=== PATIENT | female | born 1945 | race Caucasian/White ===

== ENCOUNTER 2018-09-12 12:57 | Emergency (ER) | payer MEDICARE, OTHER ==
[~2018-09-12] VITALS: Ht 170.2 cm; Wt 102.1 kg
[~2018-09-12 12:57] MED LIST: ALLOPURINOL100 MG PO; CALCIUM + VITA1 EACH PO; CIPROFLOXACIN500 MG PO; CYCLOBENZAPRINE10 MG PO; FLONASE2 SPRAY; GABAPENTIN600 MG PO; HYDROMORPHONE HC2 MG PO; K-PHOS NEUTRAL T1 EA PO; LISINOPRIL10 MG PO; MAG-OXIDE400 MG PO; OMEPRAZOLE20 MG PO; OXYBUTYNIN CHLOR5 MG PO; OXYCODONE HCL5 MG PO; SPIRONOLACTONE50 MG PO; TRAMADOL HCL50 MG PO; VITAMIN D2000 UNI1 PO; [UNRECOGNIZED DRUG - OTHER] OU
--- OUTSIDE RECORDS SUMMARY | 2018-09-12 13:00 | XMS ---
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 E.D. VISIT COUNT (12 MO.) 1 ALFONSO Dumont TOTAL 1 NOTE: Visits indicate total known visits. ED/UCC VISIT TRACKING (12 MO.) 09/12/2018 12:57 AL[facility]ON[facility] Ryan [place] TYPE: Emergency COMPLAINT: - R HAND LAC INPATIENT VISIT TRACKING (12 MO.) No inpatient visits to display in this time frame [email or web address]
[2018-09-12] MEDS ORDERED: LISINOPRIL-HCT1 EAC2 PO (13:42)
== END 2018-09-12 13:46 | disposition home or self-care (01) ==
LOC: ED 12:57
DX: S61.412A Laceration without foreign body of left hand, initial encounter (principal); W26.0XXA Contact with knife, initial encounter; E11.9 Type 2 diabetes mellitus without complications; Z87.891 Personal history of nicotine dependence; Z88.0 Allergy status to penicillin; Z88.2 Allergy status to sulfonamides; Z88.5 Allergy status to narcotic agent; Z88.8 Allergy status to other drugs, medicaments and biological substances; Z79.899 Other long term (current) drug therapy; Z79.891 Long term (current) use of opiate analgesic
CPT/HCPCS: 99282

== ENCOUNTER → 2019-09-23 | Emergency (ER) | payer MEDICARE ==
[~2019-09-23] VITALS: Ht 170.2 cm; Wt 102.1 kg
[~2019-09-23] MED LIST changes: +FENOFIBRATE160 MG PO; +LISINOPRIL-HCT1 EAC2 PO
--- OUTSIDE RECORDS SUMMARY | 2019-09-23 16:58 | XMS ---
PreManage Notification: OSMIN LOGAN Security Spiritual Advisor Events No recent Security Events currently on file CRITERIA MET - COSME CARE PROVIDERS ELISSA BAKER Physician Facility Supervisor 09/13/2018-Current PHONE: [phone] Elissa Baker PA-C Treatment Current PHONE: Unknown shaun Case or Skin Toggler Current PHONE: Unknown Ashley FLANNERY Current PHONE: Unknown Guerda has no Care Guidelines for this patient. Aniya VISIT COUNT (12 MO.) 1 ALFONSO Dumont TOTAL 1 NOTE: Visits indicate total known visits. ED/UCC VISIT TRACKING (12 MO.) 09/23/2019 16:56 ALFONSO Ryan [place] TYPE: Emergency COMPLAINT: - LEFT LEG SWELLING, SWALLOWING PROBLEM INPATIENT VISIT TRACKING (12 MO.) No inpatient visits to display in this time frame [id number]
--- NOTE | 2019-09-23 19:15 | EKG ---
[facility] [address] [place], [place] [address] Signed Normal sinus rhythm Right bundle branch block Abnormal ECG No previous ECGs available Confirmed by GUANACO LANCASTER MD ([id number] on 09/23/2019 7:15:32 PM Electronically Signed By: GUANACO LANCASTER MD 09/23/19 1915 PATIENT NAME: OSMIN LOGAN Electrocardiogram DATE OF : 45 PHYSICIAN: GUANACO LANCASTER MD REPORT #: [id number] REPORT IS CONFIDENTIAL AND NOT TO BE RELEASED WITHOUT AUTHORIZATION
== END ==
LOC: ED 16:55
DX: N17.9 Acute kidney failure, unspecified (principal); N39.0 Urinary tract infection, site not specified; I82.402 Acute embolism and thrombosis of unspecified deep veins of left lower extremity; E11.9 Type 2 diabetes mellitus without complications; Z87.891 Personal history of nicotine dependence; Z88.0 Allergy status to penicillin; Z88.2 Allergy status to sulfonamides; Z88.1 Allergy status to other antibiotic agents; Z88.5 Allergy status to narcotic agent; Z79.899 Other long term (current) drug therapy; Z79.891 Long term (current) use of opiate analgesic
CPT/HCPCS: 51702; 71045; 80053; 81001; 82570; 83605; 84300; 84484; 85025; 93005; 93010; 93971; 99285-25; G0480; J0696; J1650; J7030